=== PATIENT | female | born 1990 | race Hispanic/Latino ===

== ENCOUNTER 2021-03-26 05:39 | Inpatient (IN) | payer OTHER, SELFPAY ==
[2021-03-26] MEDS ORDERED: PROMETHAZINE INJ 25 MG/ML AMP IM PRN (05:50)
[2021-03-26] MEDS ORDERED: METHYLERGONOVINE 0.2MG/ML AMP IM PRN (05:50)
[2021-03-26] MEDS ORDERED: CARBOPROST TROME 250 MCG/ML IM PRN (05:50)
[2021-03-26] MEDS ORDERED: PENICILLIN 5 MU in NA CHLORIDE 0.9% 100 ML IV ONE (05:50)
[2021-03-26] MEDS ORDERED: Ringers Lactate 1,000 ML IV PRN (05:50)
[2021-03-26] MEDS ORDERED: BUTORPHANOL 1 MG/ML INJ IV PRN (05:50)
[2021-03-26] MEDS ORDERED: OXYTOCIN/LR 20 UNIT/1,000 ML BAG IV SCH ×2 (06:00→07:00)
[2021-03-26] MEDS ORDERED: Ringers Lactate 1,000 ML IV SCH (06:00)
[2021-03-26] MEDS ORDERED: LIDOCAINE 1% MPF 30 ML VIAL ONE (06:14)
[2021-03-26] MEDS ORDERED: ACETAMINOPHEN 500 MG TAB PO PRN (07:00)
[2021-03-26] MEDS ORDERED: BISACODYL 10 MG RECTAL SUPP RC PRN (07:00)
[2021-03-26] MEDS ORDERED: DIPHENHYDRAMINE 25 MG TAB/CAP PO PRN (07:00)
[2021-03-26] MEDS ORDERED: DOCUSATE NA/SENNA CONC 1 TAB PO PRN (07:00)
[2021-03-26] MEDS ORDERED: Oxycodone HCl/Acetaminophen 1 TAB TAB PO PRN (07:00)
[2021-03-26 07:21] LABS: Absolute Lymphocytes (CBC) 2.1 K/uL (0.7-4.9); Hematocrit 33.9 % (36.0-45.0); Lymphocytes % 16.2 % (15.3-44.8); MPV 7.8 fL (7.6-11.3); RBC Red Blood Cell Count 3.65 M/uL (3.86-4.86)
[2021-03-26 07:40] VITALS: BMI 45.3
--- NOTE | 2021-03-26 08:09 | PREOPHP ---
Date of Admission: 03/26/2021 History Of Present Illness: Alicia Russo is a 30-year-old 4, para 2, [facility] patie nt, 39 weeks 1 day, followed antepartum at [facility] with Rh negative, received RhoGAM during the pregnanc y. Also noted to be strep positive. Said she wanted delivery here, but was too far along and decide d to come here though to deliver. When she came in, she was 8-9 cm, bulging membranes. Family History: Mother and grandmother with diabetes. Father from thyroid cancer. No other si gnificant history. Allergy: No drug allergies. Past Surgical History: Dental surgery, but otherwise no surgeries. Medications: vitamins prior to admission. Physical Examination: HEENT: Clear. Pupils equal, round, reactive to light and accommodation. Conjunctivae well perfused . No oral, lingual, or buccal lesions. Chest and Lungs: Clear. Heart: Without murmurs, thrills, heaves, or rubs. Breasts: Not examined. Abdomen: Massively obese. Extremities: Clear without edema, cyanosis, or clubbing. Pelvic Exam: As stated. Assessment/plan: Admit, IV penicillin started. Anticipate delivery relatively soon. JEIMY/MAX Voice ID: [id number]
--- NOTE | 2021-03-26 08:12 | DN ---
Surgeon: Adrien Ayala MD A 30-year-old, 4, para 2, 39 weeks 1 day, came in active rapidly advancing labor, followed an tepartum by [facility], noted to be strep positive, was started on penicillin prophylaxis, received a dose probably 30-45 minutes prior to delivery, possibly longer. FHTs normal, reactive. The patient gave a history that the baby had a cleft lip. Pediatrics was notified. The patient went to complete and pushed basically 1 set of pushes. Spontaneous vaginal delivery of a 7-pound 6-ounce male , Apg ars 9 and 9. No episiotomy. Very small first-degree laceration on the right labia minora, 1 figure- of-eight stitch with 2-0 chromic after local infiltration. Schultze delivery of the placenta, which was inspected and noted to be intact and normal. 100 cc or less blood loss. The patient tolerated a ll procedures well, went completely natural. Final Diagnoses: Term intrauterine at 39 weeks 1 day, spontaneous vaginal delivery, penici llin prophylaxis. RhoGAM pending. Other labs are pending from [facility]. NBC/MODL Voice ID: [id number] Report ID: [id number]
[2021-03-26] MEDS: IBUPROFEN 600 MG TAB PO PRN (09:46)
[2021-03-26] MEDS: Oxycodone HCl/Acetaminophen 1 TAB TAB PO PRN ×3 (10:48→20:44)
[2021-03-26] MEDS ORDERED: Rho(D) IG (HUMAN) 300 MCG SYR IM ONE (19:57)
[2021-03-26 22:49] LABS: RPR (Rapid Plasma Reagin) NON-REACT (NON-REACT)
[2021-03-27] MEDS: IBUPROFEN 600 MG TAB PO PRN (02:30)
--- NOTE | 2021-03-27 07:51 | DS ---
Addendum: The patient was noted to be beta strep positive, received 1 dose of 5 million units of pen icillin prior to delivery of the baby. JEIMY/MAX Voice ID: [id number] Report ID: [id number]
--- NOTE | 2021-03-27 07:54 | DS ---
Hospital Course: A 30-year-old, 4, para 2, 39 weeks 1 day, came in from [facility] e rapidly advancing labor, noted to be 8-9 cm on admission, went to complete, delivered a 7-pound 6-o unce male , Apgars 9 and 9. No episiotomy. Very small first-degree laceration in right labia minora, 1 fdopcc-nr-ssdck stitch at that point with local infiltration. Schultze delivery of the janessa centa, noted to be intact and normal. 100 cc blood loss. ; afebrile, ambulating, voiding. Lochia is normal. The patient is Rh negative, has received RhoGAM. She has had her Tdap immunizat ion during the . The baby was noted to have a cleft lip, which the patient was aware of. T he baby will be kept today to consult with the information security consultant about , but the shahid ent herself is doing well. She knows she can call my office for an appointment for 6 weeks followup or follow up with [facility]. She knows to report any temperature elevation of 100 degrees or greater, sev ere pain, heavy bleeding, or any other type of abnormalities. Final Diagnoses: Term intrauterine at 39 weeks 1 days, vaginal delivery, baby with cleft l ip, palate intact. RhoGAM administered. JEIMY/MAX Voice ID: [id number] Report ID: [id number]
[2021-03-27 09:34] VITALS: BP 107/68; TEMP 96.4
[2021-03-29 11:13] LABS: HBsAG Nonreactive (Nonreactive)
== END 2021-03-27 09:48 | disposition home or self-care (01) | DRG 807 ==
LOC: 2ND-WC 05:39
PROVIDERS: ADMIT Specialist; ATTEND Specialist
PROC: 10907ZC Drainage of Amniotic Fluid, Therapeutic from Products of Conception, Via Natural or Artificial Opening (ICD-10-PCS; principal; 2021-03-26)
PROC: 10E0XZZ Delivery of Products of Conception, External Approach (ICD-10-PCS; 2021-03-26)
PROC: 0HQ9XZZ Repair Perineum Skin, External Approach (ICD-10-PCS; 2021-03-26)
PROC: 3E0234Z Introduction of Serum, Toxoid and Vaccine into Muscle, Percutaneous Approach (ICD-10-PCS; 2021-03-26)
DX: O70.0 First degree perineal laceration during delivery (principal); Z37.0 Single live birth; O99.824 Streptococcus B carrier state complicating childbirth; Z3A.39 39 weeks gestation of pregnancy; Z20.822 Contact with and (suspected) exposure to COVID-19
CPT/HCPCS: 36415; 85025; 85461; 86592; 86850; 86900; 86901; 87340; G0433; J2210; J2540; J2590; J2790; J7120; U0003

== ENCOUNTER 2024-12-19 18:39 | Emergency (ER) | payer SELFPAY ==
--- OUTSIDE RECORDS SUMMARY | 2024-12-19 18:43 | XMS REPORT | Continuity of Care Document ---
Author Name Unknown Address [address] [facility] [address] [place] [address] [facility] [place] Address [address] [facility] [address] [place] [address] Care Team Providers Care Redevelopment Manager Name Role Phone Sandy Desouza Primary Care Physicia n Maegan Keyes MA Attending Clinician UnavailSANDY Calderon Attending Clinician Unavail able Sandy Desouza Attending Clinician + Maegan Al CNM Attending Clinician [phone] MALIA SEVERINO Attending Clinician Unav ailable Ultrasound, Ang-Mfm Attending Clinician Unavaila brian Whiteside MD, Stahl Attending Clinician + ALEXEI DOSS Attending Clinician Unavailable MAEGAN AL Attending Clinician Unavailisis torres Provider, ZekeRmchnick Temp Attending Clinician Brianna vailable Doctor Unassigned, [place] Attending Clinician U Terra Hanley Attending Clinician [phone] TERRA BREAUX Attending Clinician Unavailleonides [place] RN, Brittani Carroll Attending Clinician Unavailab JANINE Garcia Attending Clinician Unavailable Librado MORENO, Janine Attending Clinician [phone] Payers Payer Name Policy Type Policy Number Effective Date Expirati on Date Source [facility] [id number] 00:00:00 Problems Condition Name Condition Details Condition Category Status Onset Date Resolution Date Last Treatment Date Treating Clinician Comments Source Positive GBS test Positive GBS test Disease Active 1- 00:00: 00 [facility] Eczema, unspecifie d type Eczema, unspecifie d type Disease Active 2020-0324 00:00: 00 [facility] complicate d by cleft lip, single or unspecifie d fetus complicate d by cleft lip, single or unspecifie d fetus Disease Active 2020-03 118 00:00: 00 [facility] Low weight gain during in third trimester Low weight gain during in third trimester Disease Active 2020-03 109 00:00: 00 [facility] Anemia of mother in , antepartum Anemia of mother in , antepartum Disease Active 2020-03 0- 00:00: 00 [facility] Anemia of mother in , antepartum Anemia of mother in , antepartum Disease Active 2020-03 011 00:00: 00 [facility] Rubella non-immune status, antepartum Rubella non-immune status, antepartum Disease Active 11-11 00:00: 00 Overview: Formattin g of this note might be different from the original. Address Pp [facility] Supervisio n of high-risk with insufficie nt care Supervisio n of high-risk with insufficie nt care Disease Active 11-08 00:00: 00 [facility] Multiparit y Multiparit y Disease Active 11-08 00:00: 00 [facility] Obesity in Obesity in Disease Active 11-08 00:00: 00 [facility] Tobacco use in Tobacco use in Disease Active 11-08 00:00: 00 Overview: Formattin g of this note might be different from the original. 1/2pk/day [facility] Rh negative status during Rh negative status during Disease Active 11-08 00:00: 00 Overview: Formattin g of this note might be different from the original. Per patient report [facility] Allergies, Adverse Reactions, Alerts Allergy Name Allergy Type Status Severity Reaction(s) Onset Date Inactive Date Treating Clinician Comments Source NO KNOWN ALLERGIE S Drug Class Active [facility] Social History Social Habit Start Date Stop Date Quantity Comments Source ASSERTION 2020-07-09 00:00:00 [facility] History of tobacco use Cigarette Smoker [facility] Exposure to SARS-CoV-2 (event) 2021-02-23 00:00:00 2021-03-25 13:05:00 Not sure [facility] Alcohol intake 2021-03-11 00:00:00 2021-03-11 00:00:00 Ex-drinker (finding) [facility] Cigarettes smoked current (pack per day) - Reported 2020-11-08 00:00:00 2020-11-08 00:00:00 [facility] Tobacco use and exposure 2020-11-08 00:00:00 2020-11-08 00:00:00 Smokeless tobacco non-user [facility] History of Social function 2020-11-08 00:00:00 2020-11-08 00:00:00 [facility] Sex Assigned At 1990 00:00:00 1990 00:00:00 [facility] Smoking Status Start Date Stop Date Source Smokes tobacco daily 2020-11-08 00:00:00 [facility] Medications Ordered Medication Name Filled Medication Name Start Date Stop Date Current Medication? Ordering Clinician Indication Dosage Frequency Signature (SIG) Comments Components Source hydrOXYzine (VISTARIL) 50 mg capsule 03-11 00:00: 00 Yes [id number] 50mg Take 1 capsule by mouth 3 (three) times daily as needed for Itching. [facility] hydrocortis one (CORTAID) 1 % cream 03-11 00:00: 00 Yes [id number] Apply to affected area(s) 2 (two) times daily. For 1 week duration [facility] triamcinolo ne acetonide 0.1 % cream 2020-03 00:00: 00 Yes [id number] Apply to area(s) 2 (two) times daily. [facility] ascorbic acid, vitamin C, 500 mg tablet 2020-03 00:00: 00 Yes [id number] 500mg Take 1 tablet by mouth 3 (three) times daily. [facility] ferrous sulfate 325 mg (65 mg iron) tablet 2020-03 00:00: 00 Yes [id number] 325mg Take 1 tablet by mouth 2 (two) times daily. [facility] PNV 67-iron ps-folate no.1-dha (VITAFOL ULTRA) 29 mg iron- 1 mg-200 mg Cap 2020-03 00:00: 00 Yes [id number] 09 1{each} Take 1 Each by mouth daily. [facility] PNV 67-iron ps-folate no.1-dha (VITAFOL ULTRA) 29 mg iron- 1 mg-200 mg Cap 2020-03 00:00: 00 Yes [id number] 09 1{each} Take 1 Each by mouth daily. [facility] Immunizations Ordered Immunization Name Filled Immunization Name Date Status Comments Source TDAP 2020 00:00:00 Completed [facility] Rho (d) Immune Globulin 2020 00:00:00 Completed [facility] TDAP 2020 00:00:00 Completed [facility] Rho (d) Immune Globulin 2020 00:00:00 Completed [facility] TDAP 2020 00:00:00 Completed [facility] Rho (d) Immune Globulin 2020 00:00:00 Completed [facility] TDAP 2020 00:00:00 Completed [facility] Rho (d) Immune Globulin 2020 00:00:00 Completed [facility] Influenza Virus Vaccine Quad IM, Preserv and ABX Free 6 MO-64 YRS 2020-12-06 00:00:00 Completed [facility] Influenza Virus Vaccine Quad IM, Preserv and ABX Free 6 MO-64 YRS 2020-12-06 00:00:00 Completed [facility] Influenza Virus Vaccine Quad IM, Preserv and ABX Free 6 MO-64 YRS 2020-12-06 00:00:00 Completed [facility] Influenza Virus Vaccine Quad IM, Preserv and ABX Free 6 MO-64 YRS 2020-12-06 00:00:00 Completed [facility] Influenza Virus Vaccine Quad IM, Preserv and ABX Free 6 MO-64 YRS (FLUCELVAX) Unknown Completed [facility] TDAP Unknown Completed [facility] Rho (d) Immune Globulin Unknown Completed [facility] Vital Signs Vital Name Observation Time Observation Value Comments S ource Systolic blood pressure 2021-03-25 19:07:00 127 mm[Hg] [facility] Diastolic blood pressure 2021-03-25 19:07:00 78 mm[Hg] [facility] Heart rate 2021-03-25 19:07:00 97 /min [facility] Body temperature 2021-03-25 19:06:00 35.44 Nancy [facility] Respiratory rate 2021-03-25 19:06:00 16 /min [facility] Body height 2021-03-25 19:06:00 167.6 cm [facility] Body weight 2021-03-25 19:06:00 127.574 kg [facility] BMI 2021-03-25 19:06:00 45.39 kg/m2 [facility] Systolic blood pressure 2021-03-11 17:18:00 131 mm[Hg] [facility] Diastolic blood pressure 2021-03-11 17:18:00 82 mm[Hg] [facility] Heart rate 2021-03-11 17:18:00 88 /min [facility] Body temperature 2021-03-11 17:18:00 35.22 Nacny [facility] Respiratory rate 2021-03-11 17:18:00 16 /min [facility] Body height 2021-03-11 17:18:00 167.6 cm [facility] Body weight 2021-03-11 17:18:00 127.121 kg [facility] BMI 2021-03-11 17:18:00 45.23 kg/m2 [facility] Procedures Procedure Date / Time Performed Performing Clinicia n Source POCT URINALYSIS 2021-03-25 19:07:00 Sandy Montano [facility] POCT URINALYSIS 2021-03-11 17:20:00 Sandy Montano [facility] Encounters Start Date/Time End Date/Time Encounter Type Admission Type Attending Clinicians Care Facility Care Department Encounter ID Source 2022-01-06 08:38:38 Outpatient [facility] [id number] [facility] 2022-04-22 00:00:00 2022-04-22 00:00:00 Case Management Maegan Keyes ..840.114 350.1.13.10 4.2.7.2.686 [id number] [facility] 2021-04-16 13:45:00 2021-04-16 13:45:00 Outpatient R SANDY MONTANO [facility] [id number] [facility] 2021-04-01 10:45:00 2021-04-01 10:45:00 Outpatient R SANDY MONTANO [facility] [id number] [facility] 2021-03-25 12:45:00 2021-03-25 13:36:50 Outpatient R SANDY MONTANO [facility] [id number] [facility] 2021-03-25 12:45:00 2021-03-25 13:36:50 Routine Visit Sandy Montano [facility] [employer] SUPER[employer] [facility] MAT[facility]NAL & CHILD [facility] ..840.114 350.1.13.10 4.2.7.2.686 [id number] [facility] 2021-03-19 00:00:00 2021-03-19 00:00:00 Patient Secure Msg Sandy Montano [facility] [employer] [facility] MATERNAL & CHILD [facility] 1.2.840.114 350.1.13.10 4.2.7.2.686 [id number] [facility] 2021-03-11 11:00:00 2021-03-11 11:42:13 Routine Visit Sandy Montano [facility] [employer] SUPERVISOR [facility] & CHILD [facility] 1.2.840.114 350.1.13.10 4.2.7.2.686 [id number] [facility] 2021-03-11 11:00:00 2021-03-11 11:42:13 Outpatient R RODGERDIONISIOSANDY [facility] [id number] [facility] 2021-03-11 11:00:00 2021-03-11 11:00:00 Outpatient R EVASIDIONISIO SANDY [facility] [id number] [facility] 2021-03-04 12:45:00 2021-03-04 13:46:27 Outpatient R AKINSOCORRODIONISIOSANDY [facility] [id number] [facility] 2021-03-04 12:45:00 2021-03-04 13:46:27 Routine Visit Sandy Montano [facility] [employer] SUPER[employer] [facility] & CHILD [facility] 1.2.840.114 350.1.13.10 4.2.7.2.686 [id number] [facility] 2021-03-04 12:45:00 2021-03-04 13:46:27 Outpatient R AKINSIDIONISIOSANDY [facility] [id number] [facility] 2021-03-04 12:45:00 2021-03-04 12:45:00 Outpatient R AKINSIDIONISIO SANDY [facility] [id number] [facility] 2021-02-26 12:45:00 2021-02-26 13:35:09 Outpatient R AKINSIBRITNEY NICHOLEOLA [facility] [id number] [facility] 2021-02-26 12:45:00 2021-02-26 13:35:09 Routine Visit EvasocorroSandy nichole [facility] [employer] [facility] & CHILD [facility] 1.2.840.114 350.1.13.10 4.2.7.2.686 [id number] [facility] 2021-02-26 12:45:00 2021-02-26 12:45:00 Outpatient R SANDY MONTANO [facility] [id number] [facility] 2021-02-14 00:00:00 2021-02-14 00:00:00 Abstract RodgerdionisioSandy Joanne [facility] [employer] [facility] & CHILD [facility] 1.2.840.114 350.1.13.10 4.2.7.2.686 [id number] [facility] 2021-02-13 00:00:00 2021-02-13 00:00:00 Maegan Kramer [facility] [employer] SUPER[employer] [facility] & CHILD [facility] 1.2.840.114 350.1.13.10 4.2.7.2.686 [id number] [facility] 2021-02-12 15:30:00 2021-02-12 15:30:00 Routine Visit Rodgerdionisio Sandy Joanne [facility] [employer] SUPER[employer] [facility] & CHILD [facility] 1.2.840.114 350.1.13.10 4.2.7.2.686 [id number] [facility] 2021-02-12 15:30:00 2021-02-12 14:10:43 Outpatient R SANDY MONTANO [facility] [id number] [facility] 2021-02-12 13:00:00 2021-02-12 13:31:24 Outpatient P MALIA CARDENAS [facility] [id number] [facility] 2021-02-12 13:00:00 2021-02-12 13:30:00 [employer] Consultant Visit Ultrasound, ZekeMfMalia Arguello [facility] [employer] SUPER[employer] [facility] 1..114 350.1.13.10 4.2.7.2.686 [id number] [facility] 2021-02-06 09:45:00 2021-02-06 09:45:00 Outpatient R [facility] [id number] [facility] 2021-01-31 09:00:00 2021-01-31 09:00:00 Outpatient ALEXEI ROMERO [facility] [id number] [facility] 2021-01-22 10:45:00 2021-01-22 11:32:18 Outpatient R MAEGAN AL [facility] [id number] [facility] 2021-01-22 10:34:10 2021-01-22 11:32:18 Routine Visit Provider, Bob-Rmchp Maegan Vela [facility] [employer] [facility] & CHILD [facility] 1..114 350.1.13.10 4.2.7.2.686 [id number] [facility] 2021-01-22 10:45:00 2021-01-22 10:45:00 Outpatient R [facility] [id number] [facility] 2021-01-17 00:00:00 2021-01-17 00:00:00 Telephone Sandy Montano [facility] [employer] [facility] ..114 350.1.13.10 4.2.7.2.686 [id number] [facility] 2021-01-17 00:00:00 2021-01-17 00:00:00 Orders Only Doctor Unassigned, [place] [facility] .114 350.1.13.10 4.2.7.2.686 [id number] [facility] 2021-01-16 00:00:00 2021-01-16 00:00:00 Case Management Terra Breaux [facility] [employer] [facility]ILD [facility] 1.2.840.114 350.1.13.10 4.2.7.2.686 [id number] [facility] 2021-01-15 09:54:23 2021-01-15 11:15:00 [employer] Consultant Visit Ultrasound, Malia Alexandre [facility] [employer] SUPER[employer] [facility] & CHILD [facility] 1..840.114 350.1.13.10 4.2.7.2.686 [id number] [facility] 2021-01-15 10:00:00 2021-01-15 10:00:00 Outpatient P MALIA CARDENAS [facility] [id number] [facility] 2021-01-07 14:54:40 2021-01-07 15:24:22 Routine Visit Provider, Terra Rogel [facility] [employer] [facility]ILD [facility] 1..840.114 350.1.13.10 4.2.7.2.686 [id number] [facility] 2021-01-07 14:30:00 2021-01-07 15:24:22 Outpatient R TERRA BREAUX [facility] [id number] [facility] 2021-01-07 14:30:00 2021-01-07 15:24:22 Outpatient R TERRA BREAUX [facility] [id number] [facility] 2021-01-01 09:30:00 2021-01-01 09:30:00 Outpatient R TERRA BREAUX [facility] [id number] [facility] 2020 10:18:18 2020 10:58:47 Routine Visit Terra Breaux [facility] [employer] SUPER[employer] [facility] 1..840.114 350.1.13.10 4.2.7.2.686 [id number] [facility] 2020 10:00:00 2020 10:58:47 Outpatient Gaurang BREAUX TERRA [facility] [id number] [facility] 2020 00:00:00 2020 00:00:00 Letter (Out) Brittani Cuba [facility] 1..840.114 350.1.13.10 4.2.7.2.686 [id number] [facility] 2020-12-18 16:20:00 2020-12-18 16:35:22 Outpatient JANINE MARS [facility] [id number] [facility] 2020-12-18 16:12:00 2020-12-18 16:35:22 Urgent Care Janine Pavon [facility] 1..840.114 350.1.13.10 4.2.7.2.686 [id number] [facility] 2020-12-09 00:00:00 2020-12-09 00:00:00 Telephone Sandy Montano [facility] [employer] SUPER[employer] [facility]ILD [facility] 1..840.114 350.1.13.10 4.2.7.2.686 [id number] [facility] 2020-12-06 09:45:00 2020-12-06 10:28:31 Outpatient R SANDY OMNTANO [facility] [id number] [facility] 2020-12-06 09:45:00 2020-12-06 10:28:31 Outpatient R SANDY MONTANO [facility] [id number] [facility] 2020-12-06 09:35:21 2020-12-06 10:28:31 Routine Visit Sandy Montano [facility] [employer] SUPER[employer] [facility]ILD [facility] 1.2.840.114 350.1.13.10 4.2.7.2.686 [id number] [facility] 2020-12-05 00:00:00 2020-12-05 00:00:00 Telephone Sandy Montano [facility] [employer] SUPER[employer] [facility]ILD [facility] 1.2.840.114 350.1.13.10 4.2.7.2.686 [id number] [facility] 2020-11-08 13:27:33 2020-11-08 14:39:05 Initial Visit Sandy Montano [facility] [employer] SUPER[employer] [facility]ILD [facility] 1.2.840.114 350.1.13.10 4.2.7.2.686 [id number] [facility] 2020-11-08 13:30:00 2020-11-08 13:30:00 Outpatient R SANDY MONTANO [facility] [id number] [facility] 2020-11-08 00:00:00 2020-11-08 00:00:00 Orders Only Doctor Unassigned, [place] [facility] 1.2.840.114 350.1.13.10 4.2.7.2.686 [id number] [facility] 2020-11-08 00:00:00 2020-11-08 00:00:00 Orders Only Doctor Unassigned, [place] [facility] 1.2.840.114 350.1.13.10 4.2.7.2.686 [id number] [facility] Results Test Description Test Time Test Comments Results Result Co [facility] [id number] 17:20:00* Test Item Value Reference Range Interpretation Comme nts POCT U SP GRAV (test code = 3255) . 1.005-1.025 POCT PH U (test code = 3254) . 5-8 POCT U LEUK EST (test code = 3263) . Negative - N egative POCT U NIT (test code = 3262) . Negative - Negati ve POCT U PROT (test code = 3259) Trace Negative - Negat demetri POCT U GLU (test code = 3256) Neg Negative - Negati ve POCT U KETONE (test code = 3258) . Negative - Neg ative POCT U UROBILI (test code = 3260) . 0.2-1 POCT U BILI (test code = 3261) . Negative - Negat demetri POCT U BLD (test code = 3257) . Negative - Negati ve POCT U COLOR (test code = 3266) POCT U APPEAR (test code = 3267) [facility]
[2024-12-19 19:52] LABS: Influenza A Ag Negative; Influenza B Ag Negative; SARS-CoV-2 Antigen Rapid Res Negative (Negative)
--- NOTE | 2024-12-19 19:56 | ER ---
Nurse's Notes [facility] Name: Alicia Russo Age: 34 yrs Sex: Female : 1990 Arrival Date: 12/19/2024 Time: 18:39 Bed 21 Private MD: Diagnosis: Viral infection, unspecified Presentation: 12/19 19:07 Chief complaint: Patient states: SORE THROAT, BODY ACHES, FATIGUE, VOMITING X 2 DAYS, dd2 DIARRHEA X 3 DAYS, GETTING WORSE. Coronavirus screen: congestion, diarrhea, fatigue, fever, sore throat, vomiting. Ebola Screen: No symptoms or risks identified at this time. Initial Sepsis Screen: Does the patient meet any 2 criteria? No. Patient's initial sepsis screen is negative. Does the patient have a suspected source of infection? No. Patient's initial sepsis screen is negative. Risk Assessment: Do you want to hurt yourself or someone else? Patient reports no desire to harm self or others. Onset of symptoms was December 15, 2024. 19:07 Method Of Arrival: Ambulatory dd2 19:07 Acuity: BARBIE 3 dd2 Triage Assessment: 19:09 General: Appears in no apparent distress. uncomfortable, Behavior is calm, cooperative, dd2 appropriate for age. Pain: Complains of pain in throat, GENERALIZED. EENT: Reports difficulty swallowing pain when swallowing. GI: Reports diarrhea, nausea, vomiting. Historical: - Allergies: 19:09 No Known Allergies; dd2 - PMHx: 19:09 Back pain; dd2 - PSHx: 19:09 None; dd2 - Immunization history:: Adult Immunizations up to date. - Infectious Disease History:: Denies. - Social history:: Smoking status: Patient denies any tobacco usage or history of. Screenin:12 [facility] ED Fall Risk Assessment (Adult) History of falling in the last 3 months, kt5 including since admission No falls in past 3 months (0 pts) Confusion or Disorientation No (0 pts) Intoxicated or Sedated No (0 pts) Impaired Gait No (0 pts) Mobility Assist Device Used No (0 pt) Altered Elimination No (0 pt) Score/Fall Risk Level 0 - 2 = Low Risk Oriented to surroundings, Maintained a safe environment. Abuse screen: Denies threats or abuse. Nutritional screening: No deficits noted. Tuberculosis screening: No symptoms or risk factors identified. Assessment: 20:12 General: Appears in no apparent distress. comfortable, Behavior is calm, cooperative, kt5 appropriate for age. Pain: Complains of pain in uvula, left aspect of posterior pharynx and right aspect of posterior pharynx. Neuro: No deficits noted. Combs Agitation-Sedation Scale (RASS): 0 - Alert and Calm Level of Consciousness is awake, alert, obeys commands, Oriented to person, place, time. Cardiovascular: No deficits noted. Capillary refill < 3 seconds Clubbing of nail beds is absent JVD is absent Pulses are all present. Edema is absent. Respiratory: Airway is patent Trachea midline Respiratory effort is even, unlabored, Respiratory pattern is regular, symmetrical. GI: No deficits noted. No signs and/or symptoms were reported involving the gastrointestinal system. Abdomen is round non-distended, Bowel sounds present X 4 quads. Abd is soft and non tender X 4 quads. : No deficits noted. No signs and/or symptoms were reported regarding the genitourinary system. EENT: No deficits noted. No signs and/or symptoms were reported regarding the EENT system. Throat is reddened. Derm: No deficits noted. No signs and/or symptoms reported regarding the dermatologic system. Skin is intact, is healthy with good turgor, Skin is dry, Skin is pink, warm \T\ dry. normal, Skin temperature is warm. Musculoskeletal: No deficits noted. No signs and/or symptoms reported regarding the musculoskeletal system. 20:22 Reassessment: Patient appears in no apparent distress at this time. No changes from kt5 previously documented assessment. Patient and/or family updated on plan of care and expected duration. Pain level reassessed. Patient is alert, oriented x 3, equal unlabored respirations, skin warm/dry/pink. Vital Signs: 19:07 BP 136 / 86; Pulse 89; Resp 17; Temp 99.4; Pulse Ox 100% on R/A; Weight 130.54 kg; Pain dd2 7/10; 20:22 BP 130 / 76; Pulse 78; Resp 16; Temp 98.1; Pulse Ox 99% ; kt5 19:07 Pain Scale: Adult dd2 ED Course: 18:48 Patient arrived in ED. cj3 18:53 Ifeoma Rush FNP-C [facility]. kb 18:53 Tarun Stokes DO is Attending Physician. kb 19:09 Triage completed. dd2 19:09 Arm band placed on right wrist. dd2 19:51 Rin Ayoub, RN is Primary Nurse. kt5 20:12 Patient has correct armband on for positive identification. Bed in low position. Call kt5 light in reach. Side rails up X 1. Client placed on continuous cardiac and pulse oximetry monitoring. NIBP monitoring applied. 20:12 No provider procedures requiring assistance completed. kt5 Administered Medications: 20:28 Drug: Ondansetron Oral Disintegrating Tablet Oral Disintegrating Tablet 4 mg PO once kt5 Route: PO; 20:28 Follow up: Response: No adverse reaction kt5 Medication: 20:12 VIS not applicable for this client. kt5 Outcome: 19:55 Discharge ordered by . kb 20:29 Patient left the ED. kt5 Signatures: Ifeoma Rush, POLICY WRITER [employer]-C KATLIN-JACOB Herrera RN RN dd2 Gunjan Ibarra cj3 Rin Ayoub, RN RN kt5
--- NOTE | 2024-12-19 19:56 | EDPHYS ---
Physician Documentation [facility] Name: Alicia Russo Age: 34 yrs Sex: Female : 1990 Arrival Date: 12/19/2024 Time: 18:39 Bed 21 Private MD: ED Physician Tarun Stokes HPI: 12/19 18:59 This 34 yrs old Female presents to ER via Unassigned with complaints of Sore kb Throat, Flu Symptoms, Chest Pain. 18:59 Patient is a 34-year-old female who presents for sore throat, cough, congestion, body kb aches, subjective fever, chills, headache, diarrhea since yesterday vomiting x 2 today. Children have similar symptoms. . Historical: - Allergies: 19:09 No Known Allergies; dd2 - PMHx: 19:09 Back pain; dd2 - PSHx: 19:09 None; dd2 - Immunization history:: Adult Immunizations up to date. - Infectious Disease History:: Denies. - Social history:: Smoking status: Patient denies any tobacco usage or history of. ROS: 18:59 Constitutional: As per HPI kb Exam: 18:59 Constitutional: This is a well developed, well nourished patient who is awake, alert, kb and in no acute distress. Head/Face: Normocephalic, atraumatic. ENT: Moist Mucous membranes Cardiovascular: Regular rate Respiratory: Respirations even and unlabored. No increased work of breathing. Talking in full sentences Skin: Warm, dry with normal turgor. Normal color. MS/ Extremity: Pulses equal, no cyanosis. Neurovascular intact. Full, normal range of motion. Neuro: Awake and alert, GCS 15, oriented to person, place, time, and situation. Vital Signs: 19:07 BP 136 / 86; Pulse 89; Resp 17; Temp 99.4; Pulse Ox 100% on R/A; Weight 130.54 kg; Pain dd2 7/10; 20:22 BP 130 / 76; Pulse 78; Resp 16; Temp 98.1; Pulse Ox 99% ; kt5 19:07 Pain Scale: Adult dd2 MDM: 18:53 Medical Screening Exam initiated kb 19:00 Data reviewed: vital signs, nurses notes. kb 19:56 Differential diagnosis: COVID, flu, strep, URI, viral syndrome. I considered the kb following discharge prescriptions or medication management in the emergency department I discussed and recommended Over The Counter medications, Antibiotics: At this time antibiotics are not recommended. Counseling: I had a detailed discussion with the patient and/or guardian regarding the historical points, exam findings, and any diagnostic results supporting the discharge/admit diagnosis, lab results, the need for outpatient follow up, a family practitioner, to return to the emergency department if symptoms worsen or persist or if there are any questions or concerns that arise at home. 12/19 18:57 Order name: Group A Streptococcus Rapid; Complete Time: 19:44 kb 12/19 18:57 Order name: COVID-19 Ag + Flu A+B Ag; Complete Time: 19:55 kb 12/19 19:47 Order name: Throat Culture EDMS Administered Medications: 20:28 Drug: Ondansetron Oral Disintegrating Tablet Oral Disintegrating Tablet 4 mg PO once kt5 Route: PO; 20:28 Follow up: Response: No adverse reaction kt5 Disposition: 19:05 I was immediately available on-site in the Emergency Department for consultation in the ms3 care of the patient. Disposition Summary: 12/19/24 19:55 Discharge Ordered Notes: Location: Home kb Condition: Stable kb Diagnosis - Viral infection, unspecified kb Followup: kb - With: Emergency Department - When: As needed - Reason: Worsening of condition Followup: kb - With: Private Physician - When: 2 - 3 days - Reason: Recheck today's complaints, Continuance of care, Re-evaluation by your physician Discharge Instructions: - Discharge Summary Sheet kb - Viral Illness, Adult kb Forms: - Medication Reconciliation Form kb - Antibiotic Education kb - Prescription Opioid Use kb - Patient Portal Instructions kb - Leadership Thank You Letter kb Prescriptions: - Zofran 4 mg Oral tablet - take 1 tablet ORAL route every 6 hours As needed; 12 tablet; Refills: 0, kb Product Selection Permitted Signatures: Dispatcher [employer] EDIfeoma Moody FNP-C FNP-Ckb Sims, Marcus, DO ms3 JACOB PALACIOS RN RN dd2 Rin Ayoub RN RN kt5
[2024-12-19] MEDS ORDERED: ONDANSETRON 4 MG (ODT) TAB ONE (20:25)
[2024-12-19 23:21] VITALS: BP 130/76; TEMP 98.1; O2SAT 99
== END 2024-12-19 20:29 | disposition home or self-care (01) ==
LOC: ER 18:39
DX: B34.9 Viral infection, unspecified (principal); Z11.52 Encounter for screening for COVID-19
CPT/HCPCS: 36415; 87070; 87428; 99283; Q0162